=== PATIENT | female | born 1935 | race Caucasian/White ===

== ENCOUNTER 2020-04-03 14:34 | Inpatient (IN) | payer MEDICARE, OTHER ==
[~2020-04-03] VITALS: Ht 149.9 cm; Wt 46.0 kg
[~2020-04-03 14:34] MED LIST: DOXYCYCLINE100 M3 PO; LEXAPRO5 M1 PO; LIPITOR20 MG PO; NORVASC2.5 MG PO; SYNTHROID25 MCG PO; ZOCOR20 MG PO
[2020-04-03 14:48] VITALS: BP 173/76
[2020-04-03 15:34] LABS: BASO % 0.2 % (0.0-1.0); EOS # 0.1 10*3/uL (0.0-0.4); EOS % 1.1 % (1.0-4.0); LYMPH # 0.8 10*3/uL (1.3-4.4); MEAN CELL VOLUME 99.3 fl (81.0-99.0); MEAN CORPUSCULAR HGB 32.6 pg (27.0-31.0); MEAN CORPUSCULAR HGB CONC 32.9 g/dl (33.0-37.0); MEAN PLATELET VOLUME 8.7 fl (9.6-12.3); MONO # 0.4 10*3/uL (0.1-1.0); MONO % 7.4 % (3.0-9.0); NEUT # 3.9 10*3/uL (2.3-7.9); NEUT % 74.7 % (47.0-73.0); PLATELET COUNT AUTOMATED 392 10*3/uL (130-400); RED BLOOD COUNT 2.82 10*6/uL (4.10-5.10); RED CELL DISTRI WIDTH 14.4 % (0-14.5); WHITE BLOOD COUNT 5.3 10*3/uL (4.8-10.8)
[2020-04-03 15:36] LABS: CLARITY CLOUDY (CLEAR); COLOR YELLOW (YELLOW)
[2020-04-03 15:37] LABS: BACTERIA 1+; BILIRUBIN NEGATIVE; BLOOD 3+ (NEGATIVE); GLUCOSE NEGATIVE; KETONE TRACE; LEUKO ESTERASE TRACE (NEGATIVE); NITRITE NEGATIVE (NEGATIVE); RBC TNTC rbc/hpf (0-2); SPECIFIC GRAVITY 1.025 (1.001-1.030); UROBILINOGEN 0.2 E.U./dl (0.0-1.0)
[2020-04-03 15:43] LABS: ACT PARTIAL THROMBO TIME 29.8 SECONDS (20.0-32.1); INTERNATIONAL NORM RATIO 1.1 (2.0-3.5)
[2020-04-03 15:47] LABS: ALBUMIN 2.7 gm/dl (3.1-4.5); ALKALINE PHOSPHATASE 67 U/L (45-117); BUN 20 mg/dl (7-24); CHLORIDE 106 mmol/L (98-107); CREATININE 0.85 mg/dL (0.55-1.02); LIPASE 29 U/L (73-393); POTASSIUM 4.1 mmol/L (3.5-5.1); SGOT/AST 28 IU/L (3-35); SGPT/ALT 30 U/L (12-78); SODIUM 140 mmol/L (136-145); TOTAL PROTEIN 6.4 gm/dL (6.4-8.2)
[2020-04-03 15:54] LABS: TROPONIN I < 0.015 ng/ml (<0.045)
[2020-04-03 16:03] VITALS: BP 165/79
--- NOTE | 2020-04-03 16:08 | NUR ---
VITALS WERE UPDATED. THE PT IS LYING ON THE BED. CALL LIGHT IS ATTACHED TO THE BED RAIL.
--- NOTE | 2020-04-03 16:32 | NUR ---
PER THE PATIENTS REQUEST I CALLED HER DAUGHTER IN LAW WALI AND TOLD HER THAT SHE IS BEING ADMITTED FOR IV ANTIBOTICS. VERBAL UNDERSTANDING WAS NOTED
--- NOTE | 2020-04-03 17:46 | NUR ---
I CALLED AND GAVE DIETARY THE DINNER ORDER FOR THE PATIENT
--- NOTE | 2020-04-03 18:07 | NUR ---
I CALLED THE PATIENTS FAMILY AND GAVE THEM THE PATIENTS ROOM NUMBER AND PHONE NUMBER IN THE ROOM
--- NOTE | 2020-04-03 18:10 | NUR ---
Time: 1799 A 84 year old FEMALE admitted to 5E under services of LUIS MASON DO. Pt. arrived via stretcher from ER. Chief complaint: CELLULITUS OF BACK. TIA ZEPEDA
[2020-04-03 20:20] VITALS: BP 125/52
[2020-04-04] VITALS: BP 129/61
[2020-04-04 06:37] LABS: BASO % 0.6 % (0.0-1.0); EOS # 0.2 10*3/uL (0.0-0.4); EOS % 3.1 % (1.0-4.0); HEMATOCRIT 27.5 % (37.0-47.0); MEAN CELL VOLUME 97.5 fl (81.0-99.0); MEAN CORPUSCULAR HGB 32.3 pg (27.0-31.0); MEAN CORPUSCULAR HGB CONC 33.1 g/dl (33.0-37.0); MONO # 0.4 10*3/uL (0.1-1.0); MONO % 8.6 % (3.0-9.0); NEUT # 3.3 10*3/uL (2.3-7.9); NEUT % 67.5 % (47.0-73.0); PLATELET COUNT AUTOMATED 413 10*3/uL (130-400); RED BLOOD COUNT 2.82 10*6/uL (4.10-5.10); RED CELL DISTRI WIDTH 14.3 % (0-14.5); WHITE BLOOD COUNT 4.9 10*3/uL (4.8-10.8)
[2020-04-04 07:10] LABS: BUN 16 mg/dl (7-24); CHLORIDE 107 mmol/L (98-107); CREATININE 0.73 mg/dL (0.55-1.02); POTASSIUM 4.2 mmol/L (3.5-5.1); SODIUM 139 mmol/L (136-145)
[2020-04-04 08:00] VITALS: BP 151/75
--- NOTE | 2020-04-04 10:30 | NUR ---
ZEV-Bobo in to talk to patient. Patient states lives at home with son and [id number]. There are 0 steps in the home. Physician: [facility] Pharmacy: Various - Pt recently moved from [place] Home health services: [facility] Patient's level of ADLs: MINIMAL ASSIST Patient has working utilities: yes DME: no Follow-up physician's appointment after d/c: will need scheduled Does patient want to access PORTAL?: no Discharge plan : Pt is a 30 day readmit with last admit 03/31/20. Pt states that she was going to the [facility] and also [facility] was to begin coming to her home on 04/06/20. Pt voiced frustration because she feels that she is being told different things and different pieces to her care by several caregivers. Pt would benefit from having one professional providing pt with education and discharge plan. Discussed SNF if that is the recommendation. Pt denies the need for this. AALIYAH DUBON
--- NOTE | 2020-04-04 10:39 | NUR ---
ID'S ANSWERING SERVICE CALLED AT THIS TIME REGARDING CONSULT.
[2020-04-04 12:00] VITALS: BP 123/62
--- NOTE | 2020-04-04 14:44 | NUR ---
DRESSING CHANGED TO PATIENT'S LOWER BACK PER ORDER. PT TOLERATED WELL.
[2020-04-04 16:00] VITALS: BP 118/70
--- NOTE | 2020-04-04 18:46 | NUR ---
DONNA LUCIO HERE TO SEE PATIENT REGARDING CONSULT.
--- NOTE | 2020-04-04 19:44 | NUR ---
24 HR CHART CHECK COMPLETE.
[2020-04-04 20:00] VITALS: BP 134/58
--- NOTE | 2020-04-04 20:00 | NUR ---
PT IS SITTING UP IN BED AT THIS TIME. NO S/S OF DISTRESS NOTED. EDUCATION PROVIDED ON MEDICATION CHANGES. RESPS ARE EASY AND NONLABORED, NO C/O VOICED. BED LOW, CALL LIGHT WITHIN REACH. WILL CONTINUE TO MONITOR.
[2020-04-05] VITALS: BP 130/67
[2020-04-05 06:06] LABS: BASO % 0.4 % (0.0-1.0); EOS # 0.1 10*3/uL (0.0-0.4); EOS % 2.4 % (1.0-4.0); HEMATOCRIT 26.9 % (37.0-47.0); LYMPH # 0.8 10*3/uL (1.3-4.4); LYMPH % 17.7 % (27.0-41.0); MEAN CELL VOLUME 97.8 fl (81.0-99.0); MEAN CORPUSCULAR HGB 33.1 pg (27.0-31.0); MEAN CORPUSCULAR HGB CONC 33.8 g/dl (33.0-37.0); MEAN PLATELET VOLUME 8.8 fl (9.6-12.3); MONO # 0.5 10*3/uL (0.1-1.0); NEUT # 3.1 10*3/uL (2.3-7.9); NEUT % 69.1 % (47.0-73.0); PLATELET COUNT AUTOMATED 393 10*3/uL (130-400); RED BLOOD COUNT 2.75 10*6/uL (4.10-5.10); RED CELL DISTRI WIDTH 14.2 % (0-14.5); WHITE BLOOD COUNT 4.5 10*3/uL (4.8-10.8)
[2020-04-05 08:00] VITALS: BP 125/71
--- NOTE | 2020-04-05 09:30 | NUR ---
IN TO SEE PATIENT.
--- NOTE | 2020-04-05 11:07 | NUR ---
TYLENOL GIVEN PER PRN ORDER FOR C/O LOWER BACK PAIN/DISCOMFORT. RATES PAIN 01/30. WILL MONITOR EFFECTIVENESS.
[2020-04-05 12:00] VITALS: BP 134/82
--- NOTE | 2020-04-05 12:07 | NUR ---
TYLENOL RELIEVING PAIN PER PT. WILL CONTINUE TO MONITOR.
--- NOTE | 2020-04-05 15:01 | NUR ---
DRESSING CHANGED TO LOWER BACK PER ORDER. PATIENT TOLERATED WELL. WILL MONITOR.
[2020-04-05 16:00] VITALS: BP 116/62
--- NOTE | 2020-04-05 19:10 | NUR ---
REPORT RECEIVED FROM ELISE SR. PT LYING IN BED. NO COMPLAINTS
[2020-04-05 20:00] VITALS: BP 125/57
--- NOTE | 2020-04-05 20:20 | NUR ---
24 HR chart check completed.
--- NOTE | 2020-04-05 20:44 | NUR ---
TYLENOL GIVEN FOR COMPLAINTS OF BACK PAIN AT ABSCESS SITE. WILL MONITOR
--- NOTE | 2020-04-05 21:40 | NUR ---
PER PT, TYLENOL HELPED HER BACK PAIN
[2020-04-06] VITALS: BP 141/64
--- NOTE | 2020-04-06 00:42 | NUR ---
RESTORIL GIVEN FOR COMPLAINTS OF INSOMNIA WILL MONITOR
--- NOTE | 2020-04-06 01:40 | NUR ---
RESTORIL EFFECTIVE, PT ASLEEP
--- NOTE | 2020-04-06 04:00 | NUR ---
PT SLEEPING AT THIS TIME.
[2020-04-06 07:45] LABS: BASO % 0.7 % (0.0-1.0); EOS # 0.1 10*3/uL (0.0-0.4); EOS % 2.9 % (1.0-4.0); HEMATOCRIT 31.1 % (37.0-47.0); LYMPH # 0.8 10*3/uL (1.3-4.4); LYMPH % 19.2 % (27.0-41.0); MEAN CELL VOLUME 98.7 fl (81.0-99.0); MEAN CORPUSCULAR HGB 31.7 pg (27.0-31.0); MEAN CORPUSCULAR HGB CONC 32.2 g/dl (33.0-37.0); MEAN PLATELET VOLUME 8.7 fl (9.6-12.3); MONO # 0.4 10*3/uL (0.1-1.0); MONO % 9.1 % (3.0-9.0); NEUT # 2.8 10*3/uL (2.3-7.9); NEUT % 68.1 % (47.0-73.0); PLATELET COUNT AUTOMATED 470 10*3/uL (130-400); RED BLOOD COUNT 3.15 10*6/uL (4.10-5.10); WHITE BLOOD COUNT 4.1 10*3/uL (4.8-10.8)
--- NOTE | 2020-04-06 07:58 | NUR ---
Nursing screen received and chart reviewed. Patient admitted from home with cellulitis and abscess of the back. If patient has a decline in ADLs, transfers, or functional mobility, please send OT orders. Thank you. Megan Pastrana, OTR/L
[2020-04-06 08:00] VITALS: BP 106/45
--- NOTE | 2020-04-06 08:31 | NUR ---
PHYSICAL THERAPY PT screen received. Pt admitted for worsening wound infection on the spine. Please consult PT if patient has functional decline below baseline. Kirk Mcintyre SPT Jonelle Galarza PT
--- NOTE | 2020-04-06 09:00 | NUR ---
Nib Finisher in to talk to patient. Patient states lives at home with her son and [id number]. There are 4-5 steps in the home. Physician: Dr. Yusuf Mauro Pharmacy: [facility] Home health services: [facility] RN Patient's level of ADLs: INDEPENDENT Patient has working utilities: yes DME: none Follow-up physician's appointment after d/c: will be made by the hospitalist nurse director upon discharge Does patient want to access PORTAL?: no Discharge plan discussed with patient. She lives at home with her son and [id number]-[id number]. She states she is independent in her ADLs and ambulation. Discussed home health care services and she is agreeable. When provided with a list of agencies she chose [facility]. Hospitalist nurse director notified. When medically stable she will be discharged to home with [facility] RN services. She states either her son or obtwhllu-kw-kuf will provide transportation on discharge. Her family is in the process of finding her a place to live on her own. The place they are currently looking at has a wheelchair ramp. FAB IRELAND
[2020-04-06] MEDS ORDERED: KEFLEX500 M1 PO (10:58)
--- NOTE | 2020-04-06 12:44 | NUR ---
Faxed home health referral along with discharge instructions and summary to [facility].
--- NOTE | 2020-04-06 13:45 | NUR ---
PATIENT REFUSING DISCHARGE WOUND PHOTOS SHE IS ALREADY DRSSED AND WANTS TO LEAVE
--- NOTE | 2020-04-06 13:50 | NUR ---
Discharge instructions reviewed with patient/family. Patient receptive and verbalizes understanding. Follow-up care arranged. Written instructions given to patient/family. AVERY CLEMENTE
--- NOTE | 2020-04-06 14:43 | NUR ---
PATIENT TAKEN OFF THE FLOOR VIA WHEELCHAIR, SON PICKED UP FROM MAIN ENTRANCE. ALL BELONGINGS SENT WITH PATIENT
== END 2020-04-06 15:15 | disposition home health service (06) | DRG 602 ==
LOC: ED 14:34 → 5E 16:23 → EDHOLD 16:23 → 5E 17:16
PROVIDERS: Emergency Medicine; Hospitalist; Internal Medicine; ADMIT Student in an Organized Health Care Education/Training Program; ATTEND Student in an Organized Health Care Education/Training Program
DX: L03.312 Cellulitis of back [any part except buttock and flank] (principal); L89.94 Pressure ulcer of unspecified site, stage 4; E43 Unspecified severe protein-calorie malnutrition; J90 Pleural effusion, not elsewhere classified; R80.9 Proteinuria, unspecified; R31.9 Hematuria, unspecified; M79.89 Other specified soft tissue disorders; K59.00 Constipation, unspecified; I10 Essential (primary) hypertension; E03.9 Hypothyroidism, unspecified; E83.41 Hypermagnesemia; D53.9 Nutritional anemia, unspecified; E78.5 Hyperlipidemia, unspecified; L08.9 Local infection of the skin and subcutaneous tissue, unspecified; L02.212 Cutaneous abscess of back [any part, except buttock and flank]; Z66 Do not resuscitate; Z51.5 Encounter for palliative care; S32.010G Wedge compression fracture of first lumbar vertebra, subsequent encounter for fracture with delayed healing; Z90.5 Acquired absence of kidney; Z88.5 Allergy status to narcotic agent; Z68.22 Body mass index [BMI] 22.0-22.9, adult

== ENCOUNTER 2020-04-25 18:45 | Emergency (ER) | payer MEDICARE ==
[~2020-04-25] VITALS: Ht 157.4 cm; Wt 68.0 kg
[~2020-04-25 18:45] MED LIST changes: +KEFLEX500 M1 PO
[2020-04-25 19:30] LABS: BASO % 0.7 % (0.0-1.0); EOS # 0.1 10*3/uL (0.0-0.4); EOS % 1.2 % (1.0-4.0); HEMATOCRIT 30.2 % (37.0-47.0); LYMPH # 0.9 10*3/uL (1.3-4.4); LYMPH % 20.5 % (27.0-41.0); MEAN CELL VOLUME 98.7 fl (81.0-99.0); MEAN CORPUSCULAR HGB 32.4 pg (27.0-31.0); MEAN CORPUSCULAR HGB CONC 32.8 g/dl (33.0-37.0); MONO # 0.4 10*3/uL (0.1-1.0); MONO % 8.5 % (3.0-9.0); NEUT # 2.9 10*3/uL (2.3-7.9); NEUT % 68.9 % (47.0-73.0); PLATELET COUNT AUTOMATED 235 10*3/uL (130-400); RED BLOOD COUNT 3.06 10*6/uL (4.10-5.10); RED CELL DISTRI WIDTH 14.3 % (0-14.5); WHITE BLOOD COUNT 4.2 10*3/uL (4.8-10.8)
[2020-04-25 19:42] LABS: CREATININE 1.38 mg/dL (0.55-1.02)
== END 2020-04-25 19:44 | disposition home or self-care (01) ==
LOC: ED 18:45
PROVIDERS: Internal Medicine
DX: L02.212 Cutaneous abscess of back [any part, except buttock and flank] (principal); E78.5 Hyperlipidemia, unspecified; E78.00 Pure hypercholesterolemia, unspecified; Z88.8 Allergy status to other drugs, medicaments and biological substances; Z88.5 Allergy status to narcotic agent; Z79.899 Other long term (current) drug therapy; Z90.49 Acquired absence of other specified parts of digestive tract; Z90.710 Acquired absence of both cervix and uterus

== ENCOUNTER 2020-05-07 10:24 | Observation (INO) | payer MEDICARE, OTHER ==
[~2020-05-07] VITALS: Ht 149.8 cm; Wt 49.9 kg
--- NOTE | 2020-05-07 11:29 | NUR ---
WALI HILL PT'S DAUGHTER IN LAW PHONE NUMBER FOR UPDATE [phone].
--- NOTE | 2020-05-07 12:45 | NUR ---
REPORT FROM NELSON SR.PT VOICES NO C/O. DR WAKEFIELD IN TO SPEAK WITH HER.DAUGHTER IN LAW VOICED SHE WOULD LIKE HER ADMITTED BECAUSE PT FORGETS TO EAT AND TAKE HER MEDS.--OZZY ALFONSO RN
--- NOTE | 2020-05-07 14:33 | NUR ---
PT IN CT AT THIS TIME.WHEN SHE RETURNS,SHE WILL BE TAKEN UPSTAIRS FOR ADMISSION---OZZY ALFONSO RN
--- NOTE | 2020-05-07 15:38 | NUR ---
MSADMTime: N A 85 year old FEMALE admitted to 5E under services of TYLER ZEPEDA DO. Pt. arrived via bed from ER. Chief complaint: UTI SYMPTOMS, ABDM. PAIN. WARNER MANUEL
--- NOTE | 2020-05-07 19:30 | NUR ---
PATIENT RESTING IN BED. CO HER BACK BEING ITCHY AND STATES IT IS ALWAYS LIKE THIS ALSO CO DYSURIA AND HEMATURIA. VOICES NO OTHER CONCERNS. ASSESSMENT COMPLETE. RESPS EASY AND REGULAR. CALL LIGHT IN REACH.
--- NOTE | 2020-05-07 19:39 | NUR ---
24 HR chart check completed.
--- NOTE | 2020-05-07 20:26 | NUR ---
NOTIFIED MEDS NEED RECONCILED.
--- NOTE | 2020-05-08 00:23 | NUR ---
MEDICATED WITH PRN RESTORIL PER PATIENT REQUEST FOR CO TROUBLE SLEEPING. WILL ASSESS EFFECTIVENESS.
--- NOTE | 2020-05-08 01:23 | NUR ---
PATIENT SLEEPING. RESPS EASY AND REGULAR. RESTORIL EFFECTIVE.
--- NOTE | 2020-05-08 11:43 | NUR ---
Gas Station Operator in to talk to patient. Patient states lives at HOME with ALONE. There are NO steps in the home. Physician: JAOSN [facility] Patient's level of ADLs: INDEPENDENT Patient has working utilities: YES DME: NONE Follow-up physician's appointment after d/c: WILL BE MADE BY HOSPITALIST NURSE DIRECTOR ON DISCHARGE Does patient want to access PORTAL?: NO Discharge plan PT LIVES AT HOME ALONE. STATES HER SON AND DAUGHTER IN LAW LIVE CLOSE BY AND CHECK ON HER OFTEN. STATES SHE IS CURRENTLY ACTIVE WITH HH BUT NOT SURE OF NAME. KNOWS HER NURSES NAME IS MAXIMILIANO. CALLED [facility] AND CONFIRMED SHE IS ACTIVE WITH THEM. PLAN IS TO RETURN HOME WHEN MEDICALLY STABLE WITH RESUMPTION OF [facility]. WILL CONTINUE TO FOLLOW.. MONTY ADAMS
--- NOTE | 2020-05-08 11:45 | NUR ---
PHYSICAL THERAPY Physical Therapy Observation evaluation completed on 5E with full evaluation to follow. Recommend physical therapy per plan of care and Home Health vs. outpatient PT services upon discharge. Thank you for this referral. Michelle Saeed, PT,DPT
--- NOTE | 2020-05-08 11:51 | NUR ---
NOTIFIED DR MARTINES OF CONSULT.
--- NOTE | 2020-05-08 13:28 | NUR ---
DR. RILEY NOTIFIED OF CONSULT.
--- NOTE | 2020-05-08 19:30 | NUR ---
PATIENT RESTING IN BED. PATIENT VERY DROWSY. STATES SHE IS JUST VERY TIRED TONGIHT BECAUSE SHE HASN'T BEEN GETTING A LOT OF SLEEP. VOICES NO CONCERNS. ASSESSMENT COMPLETE. RESPS EASY ADN REGULAR. CALL LIGHT IN REACH.
--- NOTE | 2020-05-08 20:26 | NUR ---
NOTIFIED MEDS NEED RECONCILED.
--- NOTE | 2020-05-08 22:28 | NUR ---
24 HR chart check completed.
--- NOTE | 2020-05-09 10:00 | NUR ---
PHYSICAL THERAPY PT IS SITTING EOB UPNN ARRIVAL, AGREEABLE TO TX. PT IDENTIFIED BY NAME AND . PT SEEN 1:1 FOR 16 MIN GT W/IN ROOM W/O AD CLOSE SBA W/ G POSTURE AND STEP LENGTH HOWEVER PT EXHIBITS DECREASED SAFETY AWARENESS AND QUICK MOVEMENT AND TURNS THAT COULD RESULT IN RISK OF FALLS, EDUCATED ON SAFETY AND TECHNIQUE. SEATED THER EX TO B LE IN ALL PLANES X20 REPS W/ PT EXHIBITNG G FOLLOW THROUGH EDUCATED TO SLOWER MOTIONS TO IMPROVE STRENGHT, ROM, AND MUSCLE CONTROL TO WHICH PT STATES UNDERSTANDING. PT REMAINS IN CHAIR UPON REQUEST SHE STATES SHE WANTS TO LOOK OUT INT THE HALLWAY. ANGELA ROSAS, FARM IMPLEMENT ENGINE MECHANIC
--- NOTE | 2020-05-09 13:36 | NUR ---
DR. COOPER'S OFFICE STAFF NOTIFIED OF CONSULT FOR ESBL URINE.
--- NOTE | 2020-05-09 15:08 | NUR ---
PRN PO NORCO EFFECTIVE, PER PATIENT. HE STATES KEEPING LEG ELEVATED ON PILLOW ALSO HELPS WITH THE PAIN.
--- NOTE | 2020-05-09 16:12 | NUR ---
PATIENT OK TO DISCHARGE FROM ID STANDPOINT, PER DR. COOPER.
--- NOTE | 2020-05-09 16:37 | NUR ---
BLADDER SCANNED FOR 170ML PER FAMILY REQUEST. PER PATIENT SHE HAD RECENTLY EMPTIED HER BLADDER.
--- NOTE | 2020-05-09 19:30 | NUR ---
TOOK OVER CARE OF PT AT THIS TIME. PT RESTING IN BED, WATCHING TELEVISION. NO COMPLAINTS ARE VOICED. RESPIRATIONS UNLABORED. CALL LIGHT IN REACH.
--- NOTE | 2020-05-10 00:30 | NUR ---
PT GIVEN RESTORIL FOR C/O RESTLESSNESS AND INABILITY TO FALL ASLEEP. WILL MONITOR FOR EFFECTIVENESS. CALL LIGHT IN REACH.
--- NOTE | 2020-05-10 01:30 | NUR ---
RESTORIL EFFECTIVE. PT SLEEPING AT THIS TIME. RESPIRATIONS EASY AND UNLABORED. SAFETY MEASURES IN PLACE. CALL LIGHT IN REACH.
--- NOTE | 2020-05-10 13:34 | NUR ---
Discharge instructions reviewed with patient/family. Patient receptive and verbalizes understanding. Follow-up care arranged. Written instructions given to patient/family. NIKOLAS BOOGIE
--- NOTE | 2020-05-11 12:34 | NUR ---
RESUME ORDER FAXED TO [facility]
== END 2020-05-10 13:34 | disposition home or self-care (01) ==
LOC: ED 10:24 → EDHOLD 13:18 → 5E 14:14
PROVIDERS: ADMIT Internal Medicine; ATTEND Internal Medicine
DX: D64.9 Anemia, unspecified (principal); E43 Unspecified severe protein-calorie malnutrition; R31.9 Hematuria, unspecified; R10.9 Unspecified abdominal pain; N39.0 Urinary tract infection, site not specified; L03.312 Cellulitis of back [any part except buttock and flank]; E03.9 Hypothyroidism, unspecified; E78.5 Hyperlipidemia, unspecified

== ENCOUNTER → 2020-06-10 | Outpatient (CLI) | payer MEDICARE, OTHER ==
[~2020-06-10] MED LIST changes: +8HR ARTHRITIS650 M1 PO; +DOXYCYCLINE MO100 M1 PO; +MONUROL3 G1 PO; +NORCO 5-325 TA1 EACH PO; +PRESERVISION A1 EACH PO; +VITAMIN D325 MCG PO
== END | disposition home or self-care (01) ==
LOC: COVID19 10:47
PROVIDERS: ATTEND Surgery
DX: Z01.812 Encounter for preprocedural laboratory examination (principal); Z20.828 Contact with and (suspected) exposure to other viral communicable diseases

== ENCOUNTER → 2020-06-27 | Outpatient (CLI) | payer MEDICARE, OTHER | END | disposition home or self-care (01) | LOC: COVID19 09:01 | PROVIDERS: ATTEND Surgery | DX: Z01.812 Encounter for preprocedural laboratory examination (principal); Z20.828 Contact with and (suspected) exposure to other viral communicable diseases ==

== ENCOUNTER → 2020-07-02 | Day surgery (SDC) | payer MEDICARE, OTHER ==
[~2020-07-02] VITALS: Ht 121.9 cm; Wt 47.6 kg
[2020-07-02 08:15] VITALS: BP 146/66
[2020-07-02 10:20] VITALS: BP 91/52
[2020-07-02 10:35] VITALS: BP 119/46
[2020-07-02 10:50] VITALS: BP 126/52
[2020-07-02 11:05] VITALS: BP 148/67
[2020-07-02 11:20] VITALS: BP 156/62
== END ==
LOC: SDC 06-10 13:15
PROVIDERS: ATTEND Surgery
DX: L89.104 Pressure ulcer of unspecified part of back, stage 4 (principal); R22.2 Localized swelling, mass and lump, trunk; I10 Essential (primary) hypertension; E78.5 Hyperlipidemia, unspecified; Z85.3 Personal history of malignant neoplasm of breast; Z85.528 Personal history of other malignant neoplasm of kidney

== ENCOUNTER 2020-07-03 15:51 | Inpatient (IN) | payer MEDICARE, OTHER ==
[~2020-07-03] VITALS: Ht 147.3 cm; Wt 47.6 kg
[2020-07-03] VITALS: BP 120/50
[~2020-07-03 15:51] MED LIST changes: -8HR ARTHRITIS650 M1 PO; -PRESERVISION A1 EACH PO
[2020-07-03 16:17] VITALS: BP 136/78
[2020-07-03 17:25] LABS: BASO % 0.3 % (0.0-1.0); EOS % 0.4 % (1.0-4.0); HEMATOCRIT 32.2 % (37.0-47.0); LYMPH # 0.5 10*3/uL (1.3-4.4); LYMPH % 6.5 % (27.0-41.0); MEAN CELL VOLUME 98.8 fl (81.0-99.0); MEAN CORPUSCULAR HGB 32.5 pg (27.0-31.0); MEAN CORPUSCULAR HGB CONC 32.9 g/dl (33.0-37.0); MEAN PLATELET VOLUME 9.6 fl (9.6-12.3); MONO # 0.5 10*3/uL (0.1-1.0); MONO % 6.9 % (3.0-9.0); NEUT # 6.1 10*3/uL (2.3-7.9); NEUT % 85.6 % (47.0-73.0); PLATELET COUNT AUTOMATED 194 10*3/uL (130-400); RED BLOOD COUNT 3.26 10*6/uL (4.10-5.10); WHITE BLOOD COUNT 7.1 10*3/uL (4.8-10.8)
[2020-07-03 17:41] LABS: ALBUMIN 3.3 gm/dl (3.1-4.5); ALKALINE PHOSPHATASE 78 U/L (45-117); BUN 23 mg/dl (7-24); CHLORIDE 106 mmol/L (98-107); CREATININE 0.81 mg/dL (0.55-1.02); LIPASE 58 U/L (73-393); POTASSIUM 4.4 mmol/L (3.5-5.1); SGOT/AST 23 IU/L (3-35); SGPT/ALT 33 U/L (12-78); SODIUM 136 mmol/L (136-145); TOTAL PROTEIN 6.7 gm/dL (6.4-8.2)
[2020-07-03 17:45] LABS: BILIRUBIN Negative (Negative); BLOOD Trace-Lysed (Negative); CLARITY Clear (Clear); COLOR Yellow (Yellow); GLUCOSE Negative (Negative); KETONE Negative (Negative); LEUKO ESTERASE 2+ (Negative); NITRITE Positive (Negative); UROBILINOGEN 0.2 E.U./dl (0.0-1.0)
[2020-07-03 17:51] LABS: TROPONIN I < 0.015 ng/ml (<0.045)
[2020-07-03 18:00] LABS: BACTERIA 3+; WBC TNTC wbc/hpf (0-5)
[2020-07-03 18:20] VITALS: BP 129/72
[2020-07-03 19:05] VITALS: BP 118/56
[2020-07-03 22:27] VITALS: BP 121/76
--- NOTE | 2020-07-03 22:40 | NUR ---
A 85, admitted to 5E, under the services of CARYN Cardoso DO with a diagnosis of UTI,SEPSIS. Chief complaint is SHAKING AND ANXIOUS. Patient arrived via bed from ER. Monitor applied. Initial assessment completed. Vital signs taken and recorded. CARYN CARDOSO DO notified of admission to the unit. Orders received. See assessment for past medical history, medications and allergies. Patient and/or family oriented to unit. [address] visitation policy reviewed. Clothing/patient valuable form completed. GONZALO JEAN
[2020-07-03] MEDS ORDERED: PRESERVISION A1 EACH PO (23:28)
--- NOTE | 2020-07-03 23:30 | NUR ---
CALLED DR. JUNIOR MADE AWARE PT MEDICATIONS VERIFIED AND NEED ORDERED.
[2020-07-03] MEDS ORDERED: 8HR ARTHRITIS650 M1 PO (23:35)
--- NOTE | 2020-07-04 00:30 | NUR ---
PT ASSISTED UP TO BSC AND BACK TO BED. NO C/O AT THIS TIME. IVF INFUSING WITH NO PROBLEM. CALL LIGHT IN REACH.
[2020-07-04 06:43] LABS: BASO % 0.3 % (0.0-1.0); EOS % 0.7 % (1.0-4.0); HEMATOCRIT 25.9 % (37.0-47.0); LYMPH # 0.6 10*3/uL (1.3-4.4); LYMPH % 10.8 % (27.0-41.0); MEAN CELL VOLUME 97.4 fl (81.0-99.0); MEAN CORPUSCULAR HGB 33.1 pg (27.0-31.0); MEAN PLATELET VOLUME 9.1 fl (9.6-12.3); MONO # 0.8 10*3/uL (0.1-1.0); MONO % 12.8 % (3.0-9.0); NEUT # 4.5 10*3/uL (2.3-7.9); NEUT % 75.1 % (47.0-73.0); PLATELET COUNT AUTOMATED 159 10*3/uL (130-400); RED BLOOD COUNT 2.66 10*6/uL (4.10-5.10); RED CELL DISTRI WIDTH 14.3 % (0-14.5); WHITE BLOOD COUNT 5.9 10*3/uL (4.8-10.8)
[2020-07-04 06:57] LABS: BUN 16 mg/dl (7-24); CHLORIDE 110 mmol/L (98-107); POTASSIUM 3.8 mmol/L (3.5-5.1); SODIUM 139 mmol/L (136-145)
[2020-07-04 08:00] VITALS: BP 154/55
--- NOTE | 2020-07-04 08:31 | NUR ---
IN TO SEE PATIENT.
--- NOTE | 2020-07-04 08:45 | NUR ---
PT MEDICATED WITH PO NORCO PER PRN ORDER FOR C/O BACK PAIN. RATES PAIN 03/02. WILL MONITOR EFFECTIVENESS.
--- NOTE | 2020-07-04 09:15 | NUR ---
IN TO SEE PATIENT.
--- NOTE | 2020-07-04 09:45 | NUR ---
NORCO RELIEVING PAIN PER PT. WILL CONTINUE TO MONITOR.
--- NOTE | 2020-07-04 11:51 | NUR ---
WOUND VAC APPLIED PER ORDER. GOOD SEAL. WILL MONITOR OUTPUT. BED LOCKED AND IN LOWEST POSITION. CALL LIGHT WITHIN REACH.
[2020-07-04 12:00] VITALS: BP 129/53
--- NOTE | 2020-07-04 12:08 | NUR ---
attempted to calll the client, she did not answer.
[2020-07-04 16:00] VITALS: BP 123/58
--- NOTE | 2020-07-04 19:30 | NUR ---
PT RESTING IN BED. RESPIRATIONS EASY AND UNLABORED ON ROOM AIR. NO S/S OF DISTRESS. CALL LIGHT IN EACH.
[2020-07-04 20:00] VITALS: BP 109/49
--- NOTE | 2020-07-04 20:15 | NUR ---
IV started right forearm with #22 protective cath after 1 attempts. Site prepped with Chloroprep. Sterile dressing applied. Patient tolerated procedure well. PHUONG VILLATORO
--- NOTE | 2020-07-04 20:57 | NUR ---
PT GIVEN NORCO FOR C/O PAIN. WILL MONITOR FOR EFFECTIVENESS. RESPIRATIONS EASY AND UNLABORED. WOUND VAC IN PLACE, PATENT. SETTINGS VERIFIED. WILL CONTINUE TO MONITOR. CALL LIGHT IN REACH.
--- NOTE | 2020-07-04 21:57 | NUR ---
BUCKY EFFECTIVE PER PT.
[2020-07-05] VITALS: BP 103/48
[2020-07-05 06:33] LABS: BASO % 0.4 % (0.0-1.0); EOS # 0.1 10*3/uL (0.0-0.4); EOS % 1.8 % (1.0-4.0); HEMATOCRIT 27.9 % (37.0-47.0); LYMPH # 0.7 10*3/uL (1.3-4.4); LYMPH % 11.6 % (27.0-41.0); MEAN CELL VOLUME 99.3 fl (81.0-99.0); MEAN CORPUSCULAR HGB 32.7 pg (27.0-31.0); MEAN PLATELET VOLUME 9.5 fl (9.6-12.3); MONO # 0.5 10*3/uL (0.1-1.0); MONO % 9.6 % (3.0-9.0); NEUT # 4.3 10*3/uL (2.3-7.9); NEUT % 76.2 % (47.0-73.0); PLATELET COUNT AUTOMATED 165 10*3/uL (130-400); RED BLOOD COUNT 2.81 10*6/uL (4.10-5.10); RED CELL DISTRI WIDTH 13.9 % (0-14.5); WHITE BLOOD COUNT 5.6 10*3/uL (4.8-10.8)
[2020-07-05 06:50] LABS: ALBUMIN 2.4 gm/dl (3.1-4.5); ALKALINE PHOSPHATASE 59 U/L (45-117); BUN 14 mg/dl (7-24); CHLORIDE 108 mmol/L (98-107); CREATININE 0.76 mg/dL (0.55-1.02); POTASSIUM 3.6 mmol/L (3.5-5.1); SGOT/AST 16 IU/L (3-35); SGPT/ALT 17 U/L (12-78); SODIUM 137 mmol/L (136-145); TOTAL PROTEIN 5.5 gm/dL (6.4-8.2)
[2020-07-05 08:00] VITALS: BP 106/48
--- NOTE | 2020-07-05 08:50 | NUR ---
IN TO SEE PATIENT.
--- NOTE | 2020-07-05 09:19 | NUR ---
NORCO GIVEN PER PRN ORDER FOR C/O LOWER BACK PAIN. RATES PAIN 9/10. WILL MONITOR EFFECTIVENESS.
--- NOTE | 2020-07-05 10:19 | NUR ---
NORCO EFFECTIVE PER PT. WILL CONTINUE TO MONITOR.
[2020-07-05 12:00] VITALS: BP 136/51
--- NOTE | 2020-07-05 14:38 | NUR ---
PT SLEEPING. NO DISTRESS. WOUND VAC INTACT. WILL MONITOR. CALL LIGHT WITHIN REACH.
[2020-07-05 16:00] VITALS: BP 124/77
--- NOTE | 2020-07-05 18:37 | NUR ---
PT MEDICATED WITH PO NORCO PER PRN ORDER FOR C/O BACK PAIN. RATES PAIN 03/02. WILL MONITOR EFFECTIVENESS.
[2020-07-05 20:00] VITALS: BP 107/54
--- NOTE | 2020-07-05 20:00 | NUR ---
PATIENT RESTING IN BED WITH NO NEEDS MADE. BED IN LOWEST POSITION, CALL LIGHT IN REACH
--- NOTE | 2020-07-05 21:49 | NUR ---
SMOOTH PLATER CALLED AND STATED PATIENT WENT INTO SVT FOR A "SHORT AMOUNT OF TIME". THIS RN HAS NOT RECIEVED THE STRIP AT THIS TIME. PATIENT WAS SLEEPING IN BED. HR 72 NSR. PATIENT DENIES ANY CHEST PAIN, SHORTNESS OF BREATH, OR PALPITATIONS.
--- NOTE | 2020-07-05 21:53 | NUR ---
DR AVERY AWARE OF SVT. STATES SHE WILL LET THE DAY TEAM KNOW.
[2020-07-06] VITALS: BP 112/48
--- NOTE | 2020-07-06 03:48 | NUR ---
MEDICATED WITH PRN NORCO FOR C/O PAIN.
--- NOTE | 2020-07-06 04:48 | NUR ---
MEDICATION EFFECTIVE PER POLICY
[2020-07-06 06:33] LABS: BASO % 0.5 % (0.0-1.0); EOS # 0.1 10*3/uL (0.0-0.4); EOS % 3.2 % (1.0-4.0); HEMATOCRIT 25.3 % (37.0-47.0); LYMPH # 0.6 10*3/uL (1.3-4.4); LYMPH % 15.3 % (27.0-41.0); MEAN CELL VOLUME 97.3 fl (81.0-99.0); MEAN CORPUSCULAR HGB 33.5 pg (27.0-31.0); MEAN CORPUSCULAR HGB CONC 34.4 g/dl (33.0-37.0); MEAN PLATELET VOLUME 9.7 fl (9.6-12.3); MONO # 0.4 10*3/uL (0.1-1.0); NEUT # 2.7 10*3/uL (2.3-7.9); NEUT % 70.7 % (47.0-73.0); PLATELET COUNT AUTOMATED 156 10*3/uL (130-400); RED CELL DISTRI WIDTH 13.5 % (0-14.5); WHITE BLOOD COUNT 3.8 10*3/uL (4.8-10.8)
[2020-07-06 06:42] LABS: BUN 15 mg/dl (7-24); CHLORIDE 109 mmol/L (98-107); CREATININE 0.65 mg/dL (0.55-1.02); POTASSIUM 3.6 mmol/L (3.5-5.1); SODIUM 138 mmol/L (136-145)
--- NOTE | 2020-07-06 07:47 | NUR ---
MEDICATED WITH PRN PO DULCOLAX FOR CONSTIPATION.
[2020-07-06 07:59] VITALS: BP 146/70
--- NOTE | 2020-07-06 08:30 | NUR ---
Discharge Plannerin to talk to patient. Patient states that she lives at home Alone and normally does very well. There are 5 steps in the home. Physician: JASON [facility]acy: [facility] Home health services: [facility] Patient's level of ADLs: INDEPENDENT Patient has working utilities: YES DME: WOUND VAC Follow-up physician's appointment after d/c: PT PREFERS TO MAKE HER OWN FOLLOW UP APPOINTMENTS, REFERRED TO SNF, first choice [facility] Does patient want to access PORTAL?: DECLINES Discharge plan PT. REFERRED TO [facility] FOR SNF AT FAMILY REQUEST DUE TO PATIENT NOT MANAGING WELL AT HOME WITH WOUND VAC. BASSEM PINK L.P.N.
--- NOTE | 2020-07-06 11:27 | NUR ---
Spoke with Ayleen in the General Surgery office of Dr. Deal to inquire about Wound Vac Orders. Pt. states that they did not arrive at the Home for the Nurse From [facility] to apply the Vac. Becki is to Call this administrative underwriter once an answer is obtained.
[2020-07-06 12:00] VITALS: BP 159/65
--- NOTE | 2020-07-06 12:56 | NUR ---
Pt. daughter Azul Called and Expressed Concerns about Pt. ability to care for herself Currently at home with the Wound and Wound Vac. She had spoken with Pt. and Pt. is agreeable to go to SNF. Notified Dr. Ibrahim of change to original Plan of Pt. going home with Home Health and Wound Vac.
--- NOTE | 2020-07-06 13:05 | NUR ---
OT NOTE Occupational therapy order and nursing screen received. Will follow up with patient for completion of an OT evaluation. Thank you. Megan Pastrana, OTR/L
--- NOTE | 2020-07-06 13:50 | NUR ---
Referral Faxed to [facility]. Pt will require PT/OT assessment and notes and Covid Swab Prior to Discharge.
--- NOTE | 2020-07-06 14:59 | NUR ---
MEDICATED WITH PRN PO NORCO FOR BACK WOUND PAIN.
--- NOTE | 2020-07-06 15:00 | NUR ---
PHYSICAL THERAPY Physical Therapy evaluation completed on 5E with full evaluation to follow. Low complexity skilled PT evaluation per chart review and evaluation, [id number]. Recommend physical therapy per plan of care and SNF upon discharge. Thank you for this referral. Michelle Saeed,PT,DPT
--- NOTE | 2020-07-06 15:03 | NUR ---
Occupational Therapy evaluation completed on five with full evaluation to follow. Recommend occupational therapy per plan of care and SNF upon discharge. Thank you for this referral. Megan Pastrana OTR/L
--- NOTE | 2020-07-06 15:45 | NUR ---
PRN PO NORCO EFFECTIVE, PER PATIENT.
--- NOTE | 2020-07-06 15:59 | NUR ---
PHYSICAL THERAPY Nursing screen received and chart reviewed. PT evaluation complete. Recommending SNF at discharge. Thank you. Michelle Saeed,PT,DPT
[2020-07-06 16:00] VITALS: BP 130/60
[2020-07-06 20:00] VITALS: BP 102/83
--- NOTE | 2020-07-06 20:00 | NUR ---
PATIENT RESTING IN BED WITH NO NEEDS MADE. WOUND VAC INTACT. BED IN LOWEST POSITION, CALL LIGHT IN REACH
[2020-07-07] VITALS: BP 146/74
--- NOTE | 2020-07-07 | NUR ---
PATIENT RESTING IN BED WITH NO S/S. BED IN LOWEST POSITION, BED ALARM ON, CALL LIGHT IN REACH
--- NOTE | 2020-07-07 06:37 | NUR ---
PATIENT RESTING BED WITH NO NEEDS MADE. BED IN LOWEST POSITION, CALL LIGHT IN REACH
[2020-07-07 06:49] LABS: BASO % 0.7 % (0.0-1.0); EOS # 0.1 10*3/uL (0.0-0.4); EOS % 3.3 % (1.0-4.0); HEMATOCRIT 26.8 % (37.0-47.0); LYMPH # 0.5 10*3/uL (1.3-4.4); LYMPH % 17.5 % (27.0-41.0); MEAN CELL VOLUME 96.1 fl (81.0-99.0); MEAN CORPUSCULAR HGB 32.3 pg (27.0-31.0); MEAN CORPUSCULAR HGB CONC 33.6 g/dl (33.0-37.0); MEAN PLATELET VOLUME 9.7 fl (9.6-12.3); MONO # 0.4 10*3/uL (0.1-1.0); MONO % 12.7 % (3.0-9.0); NEUT # 1.8 10*3/uL (2.3-7.9); NEUT % 65.4 % (47.0-73.0); PLATELET COUNT AUTOMATED 199 10*3/uL (130-400); RED BLOOD COUNT 2.79 10*6/uL (4.10-5.10); RED CELL DISTRI WIDTH 13.2 % (0-14.5); WHITE BLOOD COUNT 2.8 10*3/uL (4.8-10.8)
[2020-07-07 07:16] LABS: BUN 13 mg/dl (7-24); CHLORIDE 107 mmol/L (98-107); CREATININE 0.65 mg/dL (0.55-1.02); SODIUM 137 mmol/L (136-145)
[2020-07-07 07:25] VITALS: BP 132/54
--- NOTE | 2020-07-07 07:41 | NUR ---
MEDICATED WITH PRN PO DULCOLAX FOR CONSTIPATION AND NORCO FOR PAIN TO BACK WOUND.
--- NOTE | 2020-07-07 08:15 | NUR ---
OT NOTE Pt was seen this A.M. 1:1 for 25 minute OT session. Upon arrival pt was sitting upright on the EOB. Pt identified by name and and had complaints of 2/10 low back pain. While sitting EOB pt adjusted B socks while bringing leg up to knee level with SBA. Sit to stand completed from bed level with CGA for safety followed by functional mobility into the bathroom with CGA for safety. Pt presented with two bouts of unsteady stance which pt was able to self correct. There she transferred on/off standard commode with CGA. She then stood sink side while washing her hands with CGA for safety. Functional mobility completed to the recliner with CGA. Challenged pt's static standing tolerance needed for increased I in self care tasks and functional transfers. Pt was able to tolerate aprox 4 minutes at a time before sitting due to fatigue. Also challenged pt's dynamic standing balance while weight shifting, crossing midline, and reaching over all planes. Pt was able to maintain G- standing balance throughout. While seated in the recliner pt completed BUE towel exercises with mod resistance over all planes for 1 X 10 to increase and restore maximum functional strength. Pt was left sitting upright in the recliner with call light in hand, tray table in place, and phone in reach. Continue with rec D/C plan to SNF. MIKE Trujillo/Alessandra
--- NOTE | 2020-07-07 08:40 | NUR ---
PRN PO NORCO EFFECTIVE, PER PATIENT.
--- NOTE | 2020-07-07 08:41 | NUR ---
PHYSICAL THERAPY Patient presented to therapy in supine with head fo bed elevated and bed alarm on. Patient reports R hip pain at times. Patient gives informed consent for treatment. Patient was identified by name and on wristband. Patient performed supine > sitting on EOB with SBA. Patient STS from EOB with sba. Patient ambulated with no assistive device and CGA - SBA for 56' x 1 with no LOB and no SOB. Patient performed seated LAQs , marches and heel/toe raises x 10 reps each for strengthening the LEs in order to improve patient's functional mobility. Patient performed STS < > low chair with SBA. Patient was left in bedside chair with chair alarm tested and attached to patient and call light within reach. Patient was 1:1 with this RAIL TRANSPORTATION OPERATOR for 21 minutes total. TRAVON BROWN RAIL TRANSPORTATION OPERATOR
--- NOTE | 2020-07-07 11:30 | NUR ---
WOUND VAC DRESSING TO BACK WOUND CHANGED. PATIENT HAVING SEVERE PAIN WITH DRESSING CHANGE; OBTAINED ORDER FROM DR. RILEY FOR DILAUDID 0.5MG IV NOW AND WITH FUTURE DRESSING CHANGE PRN.
--- NOTE | 2020-07-07 11:47 | NUR ---
Clinical Updates faxed to [place] Currently still reviewing referral.
--- NOTE | 2020-07-07 11:58 | NUR ---
MEDICATED WITH PRN IV DILAUDID FOR PAIN ASSOCIATED WITH WOUND VAC DRESSING CHANGE.
[2020-07-07 12:00] VITALS: BP 103/42
--- NOTE | 2020-07-07 12:50 | NUR ---
IV DILAUDID EFFECTIVE FOR PAIN, PER PATIENT.
--- NOTE | 2020-07-07 14:12 | NUR ---
ON LICENSE OF [facility] DECLINES PT. DUE TO COST OF ANTIBIOTICS, WOUND VAC AND NO REAL THERAPY NEEDS AT THIS TIME. CALL PLACED TO HOSPITALIST PHONE FOR DR. HANNA TEAM AND SPOKE WITH DR. DOVER AND NOTIFIED OF ABOVE. WILL PROCEED WHEN DIRECTED BY PHYSICIAN.
--- NOTE | 2020-07-07 15:00 | NUR ---
Spoke with Pt. Daughter Azul and Advised that [facility] Could Not accept Pt. Pt. will be discharged to Home with Home Health to follow. Wound Measurements and Orders Faxed to [facility] .
--- NOTE | 2020-07-07 15:13 | NUR ---
Received call from Dr. Ibrahim regarding discharge planning for patient since [facility] is not accepting. Notified shoe planner, Melvina.
[2020-07-07 16:00] VITALS: BP 135/79
--- NOTE | 2020-07-07 16:25 | NUR ---
Resumption of Home Health Order Faxed to [facility] Attn: Brooke [phone] along with Wound Vac Orders.
--- NOTE | 2020-07-07 16:46 | NUR ---
SPOKE WITH PT. DAUGHTER NEYDA WHO WILL PROVIDE TRANSPORTATION WITH BUILDING EQUIPMENT OPERATOR TIME 6:00 P.M. NURSE JUANITA Cortez IS AWARE AND NEYDA WILL PICK PT. UP AT THE ER ENTRANCE. HOME HEALTH TO FOLLOW WITH PTSusannah MILTON. ADDII TO DELIVER WOUND VAC YOAN.
--- NOTE | 2020-07-07 17:07 | NUR ---
ADMINISTERED PO NORCO FOR BACK WOUND PAIN PRIOR TO APPLICATION OF A WET TO DRY DRESSING IN PREPARATION FOR DISCHARGE HOME. WOUND VAC TO BE REMOVED, HOME HEALTH CARE NURSES TO REAPPLY A WOUND VAC TOMORROW. ALSO ADMINISTERED [place] DULCOLAX FOR CONSTIPATION.
--- NOTE | 2020-07-07 17:28 | NUR ---
DULCOLAX SUPPOSITORY EFFECTIVE; PATIENT UP TO BSC HAVING LARGE BM.
--- NOTE | 2020-07-07 18:00 | NUR ---
WOUND VAC DRESSING REMOVED, DISCHARGE WOUND PHOTO OBTAINED, WET TO DRY DRESSING APPLIED. Discharge instructions reviewed with patient. Patient receptive and verbalizes understanding. Follow-up care arranged. Written instructions given to patient. PATIENT DISCHARGED TO [facility] FOR TRANPORT HOME BY PRIVATE VEHICLE WITH HER DAUGHTER. JUANITA MEDEIROS
--- NOTE | 2020-07-08 07:45 | NUR ---
OCCUPATIONAL THERAPY CO-SIGN I approve of the Occupational Therapy notes written above. SARANYA JOHNSON, OTR/L
--- NOTE | 2020-07-08 07:53 | NUR ---
PHYSICAL THERAPY CO-SIGN I approve of the Physical Therapy notes written above. FAB MCCURDY PT,DPT
--- NOTE | 2020-07-08 09:12 | NUR ---
Late Entry Continue to work with [facility] and Dr. Deal office to obain wound Vac From [facility]. New order received this a.m. from Dr. Deal office with signature and date. Faxed to [facility] attn: Jillian . Provided Cell Operator who answered the Phone at [facility] with Contact Information for Public Relations Coordinator and requested call back as Soon as Possible to arrange for Delivery of Wound Vac.
== END 2020-07-07 18:00 | disposition home health service (06) | DRG 871 ==
LOC: ED 15:51 → EDHOLD 18:48 → 5E 18:48
PROVIDERS: Emergency Medicine; Hospitalist; Internal Medicine; Student in an Organized Health Care Education/Training Program; ADMIT Internal Medicine; ATTEND Internal Medicine
DX: A41.9 Sepsis, unspecified organism (principal); L89.154 Pressure ulcer of sacral region, stage 4; N39.0 Urinary tract infection, site not specified; Z16.12 Extended spectrum beta lactamase (ESBL) resistance; D50.9 Iron deficiency anemia, unspecified; L08.9 Local infection of the skin and subcutaneous tissue, unspecified; E78.5 Hyperlipidemia, unspecified; I10 Essential (primary) hypertension; E03.9 Hypothyroidism, unspecified; R73.9 Hyperglycemia, unspecified; E83.41 Hypermagnesemia; B96.1 Klebsiella pneumoniae [K. pneumoniae] as the cause of diseases classified elsewhere; Z20.828 Contact with and (suspected) exposure to other viral communicable diseases; J44.9 Chronic obstructive pulmonary disease, unspecified; Z98.890 Other specified postprocedural states; Z88.6 Allergy status to analgesic agent; Z88.8 Allergy status to other drugs, medicaments and biological substances; Z90.49 Acquired absence of other specified parts of digestive tract; Z90.710 Acquired absence of both cervix and uterus; Z90.10 Acquired absence of unspecified breast and nipple; Z90.5 Acquired absence of kidney; Z80.1 Family history of malignant neoplasm of trachea, bronchus and lung; Z80.8 Family history of malignant neoplasm of other organs or systems; Z82.49 Family history of ischemic heart disease and other diseases of the circulatory system; Z87.311 Personal history of (healed) other pathological fracture; Z85.71 Personal history of Hodgkin lymphoma; Z85.028 Personal history of other malignant neoplasm of stomach; Z92.21 Personal history of antineoplastic chemotherapy; Z92.3 Personal history of irradiation

== ENCOUNTER → 2020-07-29 | Outpatient (CLI) | payer MEDICARE, OTHER ==
[~2020-07-29] MED LIST changes: +8HR ARTHRITIS650 M1 PO; +PRESERVISION A1 EACH PO
== END | disposition home or self-care (01) ==
LOC: US 11:26
PROVIDERS: ATTEND Family Medicine
DX: R60.0 Localized edema (principal)

== ENCOUNTER → 2020-09-10 | Outpatient (CLI) | payer MEDICARE, OTHER | LOC: WOUNDCARE 10:36 | PROVIDERS: ATTEND Nurse Practitioner | DX: L02.212 Cutaneous abscess of back [any part, except buttock and flank] (principal); L89.104 Pressure ulcer of unspecified part of back, stage 4; Z90.49 Acquired absence of other specified parts of digestive tract; Z90.5 Acquired absence of kidney; Z87.891 Personal history of nicotine dependence ==

== ENCOUNTER → 2020-09-15 | Outpatient (CLI) | payer MEDICARE, OTHER | LOC: WOUNDCARE 00:39 | PROVIDERS: ATTEND Surgery | DX: L89.104 Pressure ulcer of unspecified part of back, stage 4 (principal); Z90.49 Acquired absence of other specified parts of digestive tract; Z90.5 Acquired absence of kidney; Z87.891 Personal history of nicotine dependence ==

== ENCOUNTER → 2020-09-22 | Outpatient (CLI) | payer MEDICARE, OTHER | LOC: CANPRECLI → WOUNDCARE 01:53 | PROVIDERS: ATTEND Surgery | DX: L89.104 Pressure ulcer of unspecified part of back, stage 4 (principal); Z90.49 Acquired absence of other specified parts of digestive tract; Z90.5 Acquired absence of kidney; Z87.891 Personal history of nicotine dependence ==

== ENCOUNTER → 2020-09-29 | Outpatient (CLI) | payer MEDICARE, OTHER | LOC: WOUNDCARE 09-28 10:19 | PROVIDERS: ATTEND Nurse Practitioner | DX: L89.104 Pressure ulcer of unspecified part of back, stage 4 (principal); Z90.49 Acquired absence of other specified parts of digestive tract; Z90.5 Acquired absence of kidney; Z87.891 Personal history of nicotine dependence ==

== ENCOUNTER → 2020-10-06 | Outpatient (CLI) | payer MEDICARE, OTHER | LOC: WOUNDCARE 05:50 | PROVIDERS: ATTEND Nurse Practitioner | DX: L89.104 Pressure ulcer of unspecified part of back, stage 4 (principal); Z90.49 Acquired absence of other specified parts of digestive tract; Z90.5 Acquired absence of kidney; Z87.891 Personal history of nicotine dependence ==

== ENCOUNTER → 2020-10-13 | Outpatient (CLI) | payer MEDICARE, OTHER | END | disposition home or self-care (01) | LOC: LAB 00:37 → WOUNDCARE 00:37 | PROVIDERS: ATTEND Family Medicine | DX: L89.104 Pressure ulcer of unspecified part of back, stage 4 (principal); R19.7 Diarrhea, unspecified; M54.9 Dorsalgia, unspecified; Z90.49 Acquired absence of other specified parts of digestive tract; Z90.5 Acquired absence of kidney; Z87.891 Personal history of nicotine dependence ==

== ENCOUNTER → 2020-10-20 | Outpatient (CLI) | payer MEDICARE, OTHER | LOC: WOUNDCARE 02:29 | PROVIDERS: ATTEND Nurse Practitioner | DX: L89.104 Pressure ulcer of unspecified part of back, stage 4 (principal); Z90.49 Acquired absence of other specified parts of digestive tract; Z90.5 Acquired absence of kidney; Z87.891 Personal history of nicotine dependence ==

== ENCOUNTER → 2020-10-27 | Outpatient (CLI) | payer MEDICARE, OTHER | LOC: WOUNDCARE 00:57 | PROVIDERS: ATTEND Nurse Practitioner | DX: L89.104 Pressure ulcer of unspecified part of back, stage 4 (principal); I10 Essential (primary) hypertension; C85.90 Non-Hodgkin lymphoma, unspecified, unspecified site; E78.5 Hyperlipidemia, unspecified; E03.9 Hypothyroidism, unspecified; Z90.49 Acquired absence of other specified parts of digestive tract; Z90.5 Acquired absence of kidney; Z87.891 Personal history of nicotine dependence; Z85.028 Personal history of other malignant neoplasm of stomach ==

== ENCOUNTER → 2020-11-03 | Outpatient (CLI) | payer MEDICARE, OTHER | LOC: WOUNDCARE 00:44 | PROVIDERS: ATTEND Nurse Practitioner | DX: L89.104 Pressure ulcer of unspecified part of back, stage 4 (principal); I10 Essential (primary) hypertension; E78.5 Hyperlipidemia, unspecified; E03.9 Hypothyroidism, unspecified; Z85.72 Personal history of non-Hodgkin lymphomas ==

== ENCOUNTER → 2020-11-10 | Outpatient (CLI) | payer MEDICARE, OTHER | LOC: WOUNDCARE 01:18 | PROVIDERS: ATTEND Nurse Practitioner | DX: L89.104 Pressure ulcer of unspecified part of back, stage 4 (principal); I10 Essential (primary) hypertension; E78.5 Hyperlipidemia, unspecified; E03.9 Hypothyroidism, unspecified; Z85.72 Personal history of non-Hodgkin lymphomas; Z85.028 Personal history of other malignant neoplasm of stomach; Z87.891 Personal history of nicotine dependence; Z90.710 Acquired absence of both cervix and uterus ==

== ENCOUNTER → 2020-11-17 | Outpatient (CLI) | payer MEDICARE, OTHER | LOC: WOUNDCARE 00:33 | PROVIDERS: ATTEND Nurse Practitioner | DX: L89.104 Pressure ulcer of unspecified part of back, stage 4 (principal); I10 Essential (primary) hypertension; E78.5 Hyperlipidemia, unspecified; E03.9 Hypothyroidism, unspecified; Z85.72 Personal history of non-Hodgkin lymphomas; Z85.028 Personal history of other malignant neoplasm of stomach; Z87.891 Personal history of nicotine dependence; Z90.710 Acquired absence of both cervix and uterus ==

== ENCOUNTER → 2020-11-24 | Outpatient (CLI) | payer MEDICARE, OTHER | LOC: WOUNDCARE 00:25 | PROVIDERS: ATTEND Nurse Practitioner | DX: L89.104 Pressure ulcer of unspecified part of back, stage 4 (principal); I10 Essential (primary) hypertension; E78.5 Hyperlipidemia, unspecified; E03.9 Hypothyroidism, unspecified; Z85.72 Personal history of non-Hodgkin lymphomas; Z85.028 Personal history of other malignant neoplasm of stomach; Z87.891 Personal history of nicotine dependence; Z90.710 Acquired absence of both cervix and uterus ==

== ENCOUNTER → 2020-12-01 | Outpatient (CLI) | payer MEDICARE, OTHER | LOC: WOUNDCARE 03:45 | PROVIDERS: ATTEND Nurse Practitioner | DX: L89.104 Pressure ulcer of unspecified part of back, stage 4 (principal); I10 Essential (primary) hypertension; E78.5 Hyperlipidemia, unspecified; E03.9 Hypothyroidism, unspecified; Z85.72 Personal history of non-Hodgkin lymphomas; Z85.028 Personal history of other malignant neoplasm of stomach; Z87.891 Personal history of nicotine dependence; Z90.710 Acquired absence of both cervix and uterus ==

== ENCOUNTER → 2020-12-08 | Outpatient (CLI) | payer MEDICARE, OTHER | LOC: WOUNDCARE 01:01 | PROVIDERS: ATTEND Nurse Practitioner | DX: L89.104 Pressure ulcer of unspecified part of back, stage 4 (principal); I10 Essential (primary) hypertension; E78.5 Hyperlipidemia, unspecified; E03.9 Hypothyroidism, unspecified; Z85.72 Personal history of non-Hodgkin lymphomas; Z85.028 Personal history of other malignant neoplasm of stomach; Z87.891 Personal history of nicotine dependence; Z90.710 Acquired absence of both cervix and uterus ==

== ENCOUNTER → 2021-02-02 | Outpatient (CLI) | payer MEDICARE, OTHER | LOC: WOUNDCARE 01:31 | PROVIDERS: ATTEND Surgery | DX: L89.104 Pressure ulcer of unspecified part of back, stage 4 (principal); I10 Essential (primary) hypertension; E78.5 Hyperlipidemia, unspecified; E03.9 Hypothyroidism, unspecified; Z85.72 Personal history of non-Hodgkin lymphomas; Z85.028 Personal history of other malignant neoplasm of stomach; Z87.891 Personal history of nicotine dependence; Z90.710 Acquired absence of both cervix and uterus; Z79.899 Other long term (current) drug therapy ==

== ENCOUNTER 2021-06-17 22:25 | Emergency (ER) | payer MEDICARE, OTHER | END 2021-06-18 01:42 | disposition home or self-care (01) | LOC: ED 22:25 | DX: G45.9 Transient cerebral ischemic attack, unspecified (principal); Z88.6 Allergy status to analgesic agent; Z79.899 Other long term (current) drug therapy ==

== ENCOUNTER 2021-06-20 19:17 | Inpatient (IN) | payer MEDICARE, OTHER ==
[~2021-06-20] VITALS: Ht 149.8 cm; Wt 45.1 kg
[2021-06-20 19:21] VITALS: BP 169/75
[2021-06-20 20:32] LABS: BASO % 0.3 % (0.0-1.0); EOS # 0.1 10*3/uL (0.0-0.4); EOS % 1.6 % (1.0-4.0); HEMATOCRIT 29.8 % (37.0-47.0); LYMPH # 0.6 10*3/uL (1.3-4.4); LYMPH % 20.2 % (27.0-41.0); MEAN CELL VOLUME 99.7 fl (81.0-99.0); MEAN CORPUSCULAR HGB 33.8 pg (27.0-31.0); MEAN CORPUSCULAR HGB CONC 33.9 g/dl (33.0-37.0); MEAN PLATELET VOLUME 9.5 fl (9.6-12.3); MONO # 0.3 10*3/uL (0.1-1.0); MONO % 9.6 % (3.0-9.0); NEUT # 2.1 10*3/uL (2.3-7.9); NEUT % 68.3 % (47.0-73.0); PLATELET COUNT AUTOMATED 164 10*3/uL (130-400); RED BLOOD COUNT 2.99 10*6/uL (4.10-5.10); RED CELL DISTRI WIDTH 13.2 % (0-14.5); WHITE BLOOD COUNT 3.1 10*3/uL (4.8-10.8)
[2021-06-20 20:54] LABS: ALBUMIN 3.4 gm/dl (3.1-4.5); ALKALINE PHOSPHATASE 55 U/L (45-117); BUN 26 mg/dl (7-24); CHLORIDE 109 mmol/L (98-107); CREATININE 0.85 mg/dL (0.55-1.02); POTASSIUM 3.6 mmol/L (3.5-5.1); SGOT/AST 18 IU/L (3-35); SGPT/ALT 27 U/L (12-78); SODIUM 141 mmol/L (136-145); TOTAL PROTEIN 6.4 gm/dL (6.4-8.2)
[2021-06-20 21:17] LABS: BILIRUBIN Negative (Negative); BLOOD 3+ (Negative); CLARITY Cloudy (Clear); COLOR Yellow (Yellow); GLUCOSE Negative (Negative); KETONE Trace (Negative); LEUKO ESTERASE Negative (Negative); NITRITE Negative (Negative); PH 5.5 (4.5-8.0); SPECIFIC GRAVITY >= 1.030 (1.001-1.030)
[2021-06-20 21:25] LABS: BACTERIA TRACE; EPITHELIAL CELLS 0-2; RBC 51-100 rbc/hpf (0-2)
[2021-06-20 22:18] LABS: CPK 58 U/L (26-192); LDH 178 U/L (84-246)
[2021-06-21] VITALS (7 sets, daily range): BP systolic 106–172; BP diastolic 51–80
[2021-06-21 06:06] LABS: BUN 21 mg/dl (7-24); CHLORIDE 109 mmol/L (98-107); CHOLESTEROL 175 mg/dL (<200); CREATININE 0.73 mg/dL (0.55-1.02); POTASSIUM 3.6 mmol/L (3.5-5.1); SGOT/AST 17 IU/L (3-35); SGPT/ALT 22 U/L (12-78); SODIUM 139 mmol/L (136-145); TOTAL PROTEIN 5.7 gm/dL (6.4-8.2); TRIGLYCERIDES 59 mg/dl (<150)
[2021-06-21 06:07] LABS: ALKALINE PHOSPHATASE 48 U/L (45-117); LDL CHOLESTEROL 90 mg/dL (9-159)
[2021-06-21 06:22] LABS: BASO % 0.6 % (0.0-1.0); EOS # 0.1 10*3/uL (0.0-0.4); EOS % 1.5 % (1.0-4.0); HEMATOCRIT 28.2 % (37.0-47.0); LYMPH # 1.2 10*3/uL (1.3-4.4); LYMPH % 36.9 % (27.0-41.0); MEAN CELL VOLUME 98.3 fl (81.0-99.0); MEAN CORPUSCULAR HGB 33.1 pg (27.0-31.0); MEAN CORPUSCULAR HGB CONC 33.7 g/dl (33.0-37.0); MEAN PLATELET VOLUME 9.8 fl (9.6-12.3); MONO # 0.3 10*3/uL (0.1-1.0); MONO % 9.5 % (3.0-9.0); NEUT # 1.7 10*3/uL (2.3-7.9); NEUT % 51.2 % (47.0-73.0); PLATELET COUNT AUTOMATED 177 10*3/uL (130-400); RED BLOOD COUNT 2.87 10*6/uL (4.10-5.10); RED CELL DISTRI WIDTH 13.2 % (0-14.5); WHITE BLOOD COUNT 3.4 10*3/uL (4.8-10.8)
[2021-06-22] VITALS: BP 152/62
[2021-06-22 06:06] LABS: BUN 17 mg/dl (7-24); CHLORIDE 110 mmol/L (98-107); POTASSIUM 3.5 mmol/L (3.5-5.1); SODIUM 141 mmol/L (136-145)
[2021-06-22 06:08] LABS: BASO % 0.7 % (0.0-1.0); EOS # 0.1 10*3/uL (0.0-0.4); EOS % 4.7 % (1.0-4.0); HEMATOCRIT 31.3 % (37.0-47.0); LYMPH % 36.3 % (27.0-41.0); MEAN CELL VOLUME 99.7 fl (81.0-99.0); MEAN CORPUSCULAR HGB 33.1 pg (27.0-31.0); MEAN CORPUSCULAR HGB CONC 33.2 g/dl (33.0-37.0); MEAN PLATELET VOLUME 9.8 fl (9.6-12.3); MONO # 0.3 10*3/uL (0.1-1.0); MONO % 10.4 % (3.0-9.0); NEUT # 1.3 10*3/uL (2.3-7.9); NEUT % 47.9 % (47.0-73.0); PLATELET COUNT AUTOMATED 179 10*3/uL (130-400); RED BLOOD COUNT 3.14 10*6/uL (4.10-5.10); RED CELL DISTRI WIDTH 13.2 % (0-14.5); WHITE BLOOD COUNT 2.8 10*3/uL (4.8-10.8)
[2021-06-22 12:00] VITALS: BP 108/57
[2021-06-22 16:00] VITALS: BP 128/78
[2021-06-22 20:00] VITALS: BP 131/64
[2021-06-23] VITALS: BP 128/68
[2021-06-23 08:00] VITALS: BP 164/94
[2021-06-23] MEDS ORDERED: MECLIZINE HCL25 M2 PO (08:48)
[2021-06-23] MEDS ORDERED: ASPIRIN ADULT L81 M2 PO (08:48)
[2021-06-23] MEDS ORDERED: ATORVASTATIN CA40 M1 PO (09:06)
== END 2021-06-23 13:05 | disposition home or self-care (01) | DRG 69 ==
LOC: ED 19:17 → 4E 06-21 03:54 → EDHOLD 06-21 03:54 → 4E 06-21 20:21
PROVIDERS: Emergency Medicine; Internal Medicine; Student in an Organized Health Care Education/Training Program; ADMIT Internal Medicine; ATTEND Internal Medicine
DX: G45.9 Transient cerebral ischemic attack, unspecified (principal); C64.9 Malignant neoplasm of unspecified kidney, except renal pelvis; E44.0 Moderate protein-calorie malnutrition; C85.90 Non-Hodgkin lymphoma, unspecified, unspecified site; E83.41 Hypermagnesemia; E88.09 Other disorders of plasma-protein metabolism, not elsewhere classified; R00.1 Bradycardia, unspecified; R73.9 Hyperglycemia, unspecified; E87.8 Other disorders of electrolyte and fluid balance, not elsewhere classified; D53.9 Nutritional anemia, unspecified; I10 Essential (primary) hypertension; E78.5 Hyperlipidemia, unspecified; E03.9 Hypothyroidism, unspecified; Z90.710 Acquired absence of both cervix and uterus; Z80.1 Family history of malignant neoplasm of trachea, bronchus and lung; Z88.5 Allergy status to narcotic agent; Z88.8 Allergy status to other drugs, medicaments and biological substances; Z79.1 Long term (current) use of non-steroidal anti-inflammatories (NSAID); Z79.899 Other long term (current) drug therapy; Z68.20 Body mass index [BMI] 20.0-20.9, adult

== ENCOUNTER 2021-07-07 09:36 | Emergency (ER) | payer MEDICARE, OTHER ==
[~2021-07-07] VITALS: Ht 152.4 cm; Wt 47.6 kg
[~2021-07-07 09:36] MED LIST changes: +ASPIRIN ADULT L81 M2 PO; +ATORVASTATIN CA40 M1 PO; +MECLIZINE HCL25 M2 PO
[2021-07-07] MEDS ORDERED: GOOD NEIGHBOR M25 M1 PO (11:52)
== END 2021-07-07 12:27 | disposition home or self-care (01) ==
LOC: ED 09:36
DX: R42 Dizziness and giddiness (principal); Z88.8 Allergy status to other drugs, medicaments and biological substances; Z79.899 Other long term (current) drug therapy

== ENCOUNTER → 2021-08-25 | Outpatient (CLI) | payer MEDICARE, OTHER ==
[~2021-08-25] MED LIST changes: +GOOD NEIGHBOR M25 M1 PO
== END | disposition home or self-care (01) ==
LOC: RAD 08-24 09:00
PROVIDERS: ATTEND Family Medicine
DX: M85.88 Other specified disorders of bone density and structure, other site (principal); Z98.82 Breast implant status